=== PATIENT | male | born 1995 | race African-American/Black ===

== ENCOUNTER 2020-12-18 08:28 | Emergency (ER) | payer MEDICAID ==
[~2020-12-18] VITALS: Ht 180.3 cm; Wt 79.5 kg
[2020-12-18] MEDS: IBUPROFEN 600 MG TABLET PO ONE ×2 (10:04→10:11)
[2020-12-18 11:23] VITALS: BP 123/70
== END 2020-12-18 11:45 | disposition home or self-care (01) ==
LOC: EMS 08:29
DX: M25.562 Pain in left knee (principal); F12.90 Cannabis use, unspecified, uncomplicated; F17.210 Nicotine dependence, cigarettes, uncomplicated
CPT/HCPCS: 99284; 73562-TC; 73590-TC; Z7502; Z7610

== ENCOUNTER 2023-02-02 10:51 | Inpatient (IN) | payer MEDICAID ==
[~2023-02-02] VITALS: Ht 170.2 cm; Wt 70.0 kg
[2023-02-02] MEDS ORDERED: ONDANSETRON HCL 4 MG/2 ML VIAL IVP ONE (11:00)
[2023-02-02 11:08] LABS: BASOPHILS % (AUTO) 0.5 % (0.0-2.0); EOSINOPHILS % (AUTO) 2.1 % (1.0-6.0); HEMOGLOBIN 13.8 g/dL (13.5-17.5); LYMPHOCYTES # (AUTO) 1.6 K/uL (1.0-4.8); LYMPHOCYTES % (AUTO) 14.4 % (22.0-44.0); MEAN CORPUSCULAR HEMOGLOBIN 30.1 pg (26.0-34.0); MEAN CORPUSCULAR HGB CONC 32.9 G/dL (31.0-37.0); MEAN CORPUSCULAR VOLUME 92 fL (80-100); MONOCYTES # (AUTO) 0.4 K/uL (0.1-1.0); MONOCYTES % (AUTO) 3.3 % (2.0-9.0); NEUTROPHILS % (AUTO) 79.7 % (40.0-70.0); PLATELET COUNT (AUTO) 242 K/uL (150-450); RED BLOOD CELL COUNT(AUTO) 4.58 MIL/uL (4.50-5.90); RED CELL DISTRIBUTION WIDTH 13.8 % (11.5-14.5); WHITE BLOOD COUNT (AUTO) 11.3 K/uL (4.5-11.0)
[2023-02-02 11:17] LABS: ANION GAP 11 mmol/L (8-16); CALCIUM, TOTAL 8.2 mg/dL (8.8-10.5); CARBON DIOXIDE 26 mmol/L (22-29); CHLORIDE 100 mmol/L (98-107); CREATININE 1.27 mg/dL (0.60-1.30); GLOMERULAR FILTR. RATE CALC > 60 mL/min (>60); GLUCOSE,RANDOM 280 mg/dL (70-110); POTASSIUM 3.8 mmol/L (3.5-5.1); SODIUM SERUM 137 mmol/L (136-145); UREA NITROGEN, BLOOD 18 mg/dL (7-18)
[2023-02-02 11:23] LABS: ALANINE AMINOTRANSFERASE 31 U/L (12-78); ALBUMIN 3.7 g/dL (3.4-5.0); ALKALINE PHOSPHATASE 79 U/L (46-116); ASPARTATE AMINOTRANSFERASE 50 U/L (15-37); BILIRUBIN,TOTAL 0.3 mg/dL (0.1-1.0); TOTAL PROTEIN, SERUM 7.6 g/dL (6.4-8.2)
[2023-02-02 11:45] LABS: PH,URINE DRUG SCREEN 6.5 (5.0-8.0)
[2023-02-02 11:53] LABS: ALCOHOL, URINE DRUG SCREEN NEGATIVE (NEGATIVE); AMPHET/METH SCREEN,URINE NEGATIVE (NEGATIVE); BARBITURATE SCREEN, URINE NEGATIVE (NEGATIVE); BENZODIAZEPINES SCREEN,URINE NEGATIVE (NEGATIVE); CANNABINOID SCREEN,URINE POSITIVE (NEGATIVE); COCAINE SCREEN,URINE POSITIVE (NEGATIVE); METHADONE SCREEN, URINE NEGATIVE (NEGATIVE); OPIATE SCREEN,URINE NEGATIVE (NEGATIVE); PHENCYCLIDINE SCREEN,URINE NEGATIVE (NEGATIVE)
[2023-02-02] MEDS ORDERED: NALOXONE HCL 1 MG/ML 2 ML SYRINGE IVP ONE (12:00)
[2023-02-02 12:01] LABS: TROPONIN I-HIGH SENSITIVITY 37 ng/L (<76)
[2023-02-02] MEDS ORDERED: MAGNESIUM HYDROXIDE SUSPENSION 30 ML UDCUP PO PRN (14:30)
[2023-02-02] MEDS ORDERED: ZOLPIDEM TARTRATE 5 MG TABLET PO PRN (14:30)
[2023-02-02] MEDS ORDERED: ACETAMINOPHEN 325 MG TABLET PO PRN (14:30)
[2023-02-02] MEDS ORDERED: ONDANSETRON HCL 4 MG/2 ML VIAL IVP PRN (14:30)
[2023-02-02] MEDS ORDERED: HYDROCODONE/ACETAMINOPHEN 5-325 MG TABLET PO PRN (14:30)
[2023-02-02] MEDS ORDERED: BISACODYL 10 MG RECTAL RECTAL SUPPOSITORY PR PRN (14:30)
[2023-02-02] MEDS ORDERED: MORPHINE SULFATE 2 MG/ML SYRINGE IVP PRN (14:30)
[2023-02-02 14:38] LABS: COVID AG,FIA SOURCE NASAL SWAB
[2023-02-02] MEDS ORDERED: MAGNESIUM SULFATE 2 GM, MVI, ADULT NO.1 WITH VIT K 10 ML, THIAMINE 100 MG, FOLIC ACID 1... IV ONE ×5 (15:00)
[2023-02-02 15:07] LABS: SARS-COV2 (COVID) ANTIGEN,FIA Negative (Negative)
[2023-02-02] MEDS ORDERED: NALOXONE HCL 1 MG/ML 2 ML SYRINGE IVP PRN (15:30)
[2023-02-02 16:46] VITALS: BP 116/77; PULSE 79; RESP 19; TEMP 97.6
[2023-02-02] MEDS: HEPARIN SODIUM,PORCINE 5,000 UNITS/ML VIAL SQ SCH ×2 (16:49→23:31)
[2023-02-02] MEDS: DOCUSATE SODIUM 100 MG CAPSULE PO SCH (19:57)
[2023-02-02 20:00] VITALS: BP 138/77; PULSE 77; RESP 18; TEMP 98.6
[2023-02-02 20:47] VITALS: BP 144/73; PULSE 95; RESP 18; TEMP 98.8
[2023-02-03 00:15] VITALS: BP 115/91; PULSE 81; RESP 18; TEMP 99.2
[2023-02-03 04:46] VITALS: BP 133/86; PULSE 84; RESP 18; TEMP 98.8
[2023-02-03 07:47] VITALS: BP 132/93; PULSE 72; RESP 19; TEMP 99.3
[2023-02-03] MEDS: PANTOPRAZOLE SODIUM 40 MG DR TABLET PO SCH (09:00)
[2023-02-03] MEDS: DOCUSATE SODIUM 100 MG CAPSULE PO SCH ×2 (09:00→20:30)
[2023-02-03] MEDS: HEPARIN SODIUM,PORCINE 5,000 UNITS/ML VIAL SQ SCH ×2 (09:02→17:50)
[2023-02-03 11:18] VITALS: BP 107/69; PULSE 51; RESP 18; TEMP 98.5
[2023-02-03 15:27] VITALS: BP 119/74; PULSE 82; RESP 18; TEMP 99
[2023-02-03 19:26] VITALS: BP 136/79; PULSE 70; RESP 18; TEMP 98.4
[2023-02-04] VITALS: BP 124/67; PULSE 70; RESP 19; TEMP 98
[2023-02-04 04:00] VITALS: BP 126/71; PULSE 77; RESP 19; TEMP 98
[2023-02-04 07:30] VITALS: BP 122/68; PULSE 72; RESP 18; TEMP 98
[2023-02-04 08:23] VITALS: BP 131/66; PULSE 70; RESP 19; TEMP 98.3
[2023-02-04] MEDS: HEPARIN SODIUM,PORCINE 5,000 UNITS/ML VIAL SQ SCH ×2 (08:48)
[2023-02-04] MEDS: DOCUSATE SODIUM 100 MG CAPSULE PO SCH (09:00)
[2023-02-04] MEDS: PANTOPRAZOLE SODIUM 40 MG DR TABLET PO SCH (09:00)
== END 2023-02-04 10:55 | disposition home or self-care (01) | DRG 812 ==
LOC: EMS 10:54 → 5S 14:23 → 6N 02-04 07:53
PROVIDERS: ADMIT Internal Medicine; ATTEND Internal Medicine
DX: T40.601A Poisoning by unspecified narcotics, accidental (unintentional), initial encounter (principal); J96.91 Respiratory failure, unspecified with hypoxia; G92.9 Unspecified toxic encephalopathy; R65.10 Systemic inflammatory response syndrome (SIRS) of non-infectious origin without acute organ dysfunction; Z20.822 Contact with and (suspected) exposure to COVID-19; R73.9 Hyperglycemia, unspecified; Z87.891 Personal history of nicotine dependence; Y92.89 Other specified places as the place of occurrence of the external cause
CPT/HCPCS: 51701; 71045; 80053; 80307; 84484; 85025; 93005; 99285; J1644; J2310; J3411; J3475; J3490; J7030; 36415-L1; 36415-TC